=== PATIENT | female | born 1965 | race Asian ===

== ENCOUNTER 2021-05-11 05:13 | Emergency (ER) | payer OTHER ==
[~2021-05-11] VITALS: Ht 160 cm; Wt 72.7 kg
[2021-05-11 05:15] VITALS: BP 153/105
== END 2021-05-11 06:30 | disposition left against medical advice (07) ==
LOC: EMS 05:14
DX: M25.552 Pain in left hip (principal); Z53.21 Procedure and treatment not carried out due to patient leaving prior to being seen by health care provider

== ENCOUNTER 2021-05-12 12:40 | Emergency (ER) | payer OTHER ==
[~2021-05-12] VITALS: Ht 160 cm; Wt 72.7 kg
[2021-05-12 12:51] VITALS: BP 136/109
== END 2021-05-12 17:24 | disposition home or self-care (01) ==
LOC: EMS 12:42
DX: S70.02XA Contusion of left hip, initial encounter (principal); W18.39XA Other fall on same level, initial encounter; Y93.89 Activity, other specified; Y92.89 Other specified places as the place of occurrence of the external cause; Y99.8 Other external cause status
CPT/HCPCS: 73503; 99283

== ENCOUNTER 2025-04-02 08:28 | Emergency (ER) | payer OTHER ==
[~2025-04-02] VITALS: Ht 162.6 cm; Wt 86.4 kg
[2025-04-02 08:32] VITALS: TEMP 97.5
[2025-04-02 09:06] LABS: GLUCOMETER DEV NAME(LOC) ERT.7; GLUCOSE,POINT OF CARE 429 MG/DL (70-110)
[2025-04-02 09:07] LABS: PLATELET COUNT (AUTO) 287 K/uL (150-450); RED BLOOD CELL COUNT(AUTO) 4.93 MIL/uL (4.00-5.20); RED CELL DISTRIBUTION WIDTH 13.3 % (11.5-14.5); WHITE BLOOD COUNT (AUTO) 10.0 K/uL (4.5-11.0)
[2025-04-02 09:14] LABS: CALCIUM, TOTAL 9.2 mg/dL (8.8-10.5); CREATININE 0.87 mg/dL (0.60-1.30); GLOMERULAR FILTR. RATE CALC > 60 mL/min (>60); SODIUM SERUM 135 mmol/L (136-145); UREA NITROGEN, BLOOD 12 mg/dL (7-18)
[2025-04-02 09:16] LABS: GLUCOSE,RANDOM 427 mg/dL (70-110)
[2025-04-02] MEDS: IBUPROFEN 400 MG TABLET PO ONE (09:30)
[2025-04-02] MEDS: ACETAMINOPHEN 500 MG TABLET PO ONE (09:30)
[2025-04-02] MEDS: INSULIN LISPRO 100 UNITS/ML SQ ONE (10:47)
[2025-04-02 11:27] VITALS: BP 148/82; PULSE 91; RESP 16; O2SAT 98
[2025-04-02] MEDS ORDERED: METF-1211 PO (11:54)
[2025-04-02 12:05] LABS: GLUCOMETER DEV NAME(LOC) ER.7; GLUCOSE,POINT OF CARE 322 MG/DL (70-110)
== END 2025-04-02 12:20 | disposition home or self-care (01) ==
LOC: EMS 08:28
DX: S42.251A Displaced fracture of greater tuberosity of right humerus, initial encounter for closed fracture (principal); S42.261A Displaced fracture of lesser tuberosity of right humerus, initial encounter for closed fracture; E11.65 Type 2 diabetes mellitus with hyperglycemia; Z87.442 Personal history of urinary calculi; W19.XXXA Unspecified fall, initial encounter; Y93.89 Activity, other specified; Y92.89 Other specified places as the place of occurrence of the external cause; Y99.8 Other external cause status
CPT/HCPCS: 80048; 82962; 85025; 96372; 99284; J1815